=== PATIENT | male | born 1995 | race Asian ===

== ENCOUNTER 2022-02-22 10:20 | Emergency (ER) | payer SELFPAY ==
[~2022-02-22] VITALS: Ht 182.9 cm; Wt 81.6 kg
--- NOTE | 2022-02-22 10:30 | NUR ---
ARRIVAL PT ARRIVED VIA EMS TO ED 4. PT STATES LAST NIGHT HE HAD ABD PAIN AND BLOOD IN HIS VOMIT. HE TAKES ALEVE/IBUPROFEN OFTEN. HASNT HAD A BOWEL MOVMENT IN [address] NOTIFIED.
[2022-02-22 10:37] VITALS: BP 147/89
--- NOTE | 2022-02-22 10:45 | ER.PDOC ---
General Chief Complaint: Abdomen Pain Stated Complaint: ABD PAIN Time seen by MD: 10:30 Source: patient Exam Limitations: no limitations History of Present Illness Initial Comments This 27-year-old white male comes in with complaint of epigastric burning abdominal pain this been off and on for the past couple of months that is slowly getting worse. Patient states that he has been taking a lot of Motrin and Aleve trying to help with the pain but this seems only make things worse. 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 And called an ambulance to come and get him evaluated patient stated that he coughed up a little spot of blood. He absolutely positively denies any vomiting of blood. No blood in the stool. He has no other acute complaints. Severity/Quality: moderate Radiation: no radiation Associated Symptoms: heartburn Exacerbated by: deep breaths Relieved By: antacids, food Allergies: Coded Allergies: No Known Allergies (Unverified , 02/22/22) Vital Signs First Vital Signs Date Time Temp Pulse Resp B/P (MAP) Pulse Ox O2 Delivery O2 Flow Rate FiO2 02/22/22 10:37 98.9 75 18 147/89 (108) 98 Room Air* 0 21 Last Vital Signs Date Time Temp Pulse Resp B/P (MAP) Pulse Ox O2 Delivery O2 Flow Rate FiO2 02/22/22 10:37 98.9 75 18 02/22/22 10:37 98 02/22/22 10:37 147/89 (108) Room Air* 0 21 Past Medical History Medical History: no pertinent history Surgical History: no surgical history Social History Smoking: non-smoker Alcohol Use: occassionally Drug Use: none Constitutional: denies no symptoms reported, denies see HPI, denies chills, denies diaphoresis, denies fever, denies malaise, denies weakness, denies other EENTM: denies no symptoms reported, denies see HPI, denies eye pain, denies blurred vision, denies tearing, denies double vision, denies ear pain, denies ear discharge, denies nose pain, denies nose congestion, denies throat pain, denies throat swelling, denies mouth pain, denies mouth swelling, denies other Respiratory: denies no symptoms reported, denies see HPI, denies cough, denies orthopnea, denies shortness of breath, denies SOB with exertion, denies SOB at rest, denies stridor, denies wheezing, denies other Cardiovascular: denies no symptoms reported, denies see HPI, denies chest pain, denies edema, denies irregular heart rate, denies lightheadedness, denies palpitations, denies syncope, denies other Gastrointestinal: see HPI; denies abdomen distended; abdominal pain; denies blood streaked bowels, denies constipated, denies diarrhea, denies difficulty swallowing, denies nausea, denies poor appetite, denies poor fluid intake, denies rectal bleeding, denies vomiting, denies other Genitourinary: denies no symptoms reported, denies see HPI, denies burning, denies dysuria, denies discharge, denies frequency, denies flank pain, denies hematuria, denies incontinence, denies pain, denies urgency, denies other Musculoskeletal: denies no symptoms reported, denies see HPI, denies back pain, denies gout, denies joint pain, denies joint swelling, denies muscle pain, denies muscle stiffness, denies neck pain, denies other Skin: denies no symptoms reported, denies see HPI, denies change in color, denies change in hair/nails, denies dryness, denies lesions, denies lumps, denies rash, denies other Psychiatric/Neurological: denies no symptoms reported, denies see HPI, denies anxiety, denies depressed, denies emotional problems, denies headache, denies numbness, denies paresthesia, denies pre-existing deficit, denies seizure, denies tingling, denies tremors, denies weakness, denies other Endocrine: denies no symptoms reported, denies see HPI, denies excessive sweating, denies flushing, denies intolerance to cold, denies intolerance to heat, denies increased hunger, denies increased thrist, denies increased urine, denies unexplained weight gain, denies unexplaned weight loss, denies other Hematologic/Lymphatic: denies no symptoms reported, denies see HPI, denies anemia, denies blood clots, denies easy bleeding, denies easy bruising, denies swollen glands, denies other Physical Exam General Appearance: No Apparent Distress, WD/WN HEENT: PERRL/EOMI, Normal ENT Inspection, TMs Normal, Pharynx Normal Neck: Non-Tender, Full Range of Motion, Supple, Normal Inspection Respiratory: chest non-tender, lungs clear, normal breath sounds, no respiratory distress, no accessory muscle use Cardiovascular: Normal Peripheral Pulses, Regular Rate, Rhythm, No Edema, No Gallop, No JVD, No Murmur Gastrointestinal: Normal Bowel Sounds, Non Tender, Soft Back: Normal Inspection, No CVA Tenderness, No Vertebral Tenderness Extremities: Normal Range of Motion, Non-Tender, Normal Inspection, No Pedal Edema, No Calf Tenderness, Normal Capillary Refill, Pelvis Stable Neurologic/Psychiatric: [employer] II-XII NML as Tested, No Motor/Sensory Deficits, Alert, Normal Mood/Affect, Oriented x 3 Skin: Normal Color, Warm/Dry Lymphatic: No Adenopathy Results/Orders Results/Orders Orders - DEMETRICE STEIN MD Cbc With Auto Diff (02/22/22 10:40) Comprehensive Metabolic Panel (02/22/22 10:40) Lipase (02/22/22 10:40) Helicobacter Pylori (02/22/22 10:40) PT (02/22/22 10:40) Partial Thromboplastin Time. (02/22/22 10:40) Urinalysis (02/22/22 10:40) Saline Lock (02/22/22 10:40) Pantoprazole Sodium (Protonix Iv) (02/22/22 10:49) Pantoprazole Sodium (Protonix Iv) (02/22/22 10:52) Lidocaine Hcl (Lidocaine Hcl Viscous) (02/22/22 10:57) Mag Hydrox/Aluminum Hyd/Simeth (Mylanta) (02/22/22 10:58) Lidocaine Hcl (Lidocaine Hcl Viscous) (02/22/22 11:00) Mag Hydrox/Aluminum Hyd/Simeth (Mylanta) (02/22/22 11:00) Vital Signs Date Time Temp Pulse Resp B/P (MAP) Pulse Ox O2 Delivery O2 Flow Rate FiO2 02/22/22 10:37 98.9 75 18 02/22/22 10:37 98.9 75 18 98 02/22/22 10:37 98.9 75 18 147/89 (108) 98 Room Air* 0 21 Administered Medications Medications (Trade) Dose Ordered Sig/Thea Route PRN Reason Start Time Stop Time Status Last Admin Dose Admin Lidocaine HCl (Lidocaine HCl Viscous) 15 ml STAT STAT MM 02/22/22 11:00 02/22/22 11:01 UNV 02/22/22 11:16 15 ML Pantoprazole Sodium (Protonix Iv) 40 mg STAT STAT IV 02/22/22 10:49 02/22/22 10:50 DC 02/22/22 10:54 40 MG Laboratory Tests Test 02/22/22 10:48 02/22/22 11:00 White Blood Count 9.8 10^3/uL (4.5-11.0) Red Blood Count 5.31 10^6/uL (4.50-5.90) Hemoglobin 15.2 g/dL (13.9-16.3) Hematocrit 46.0 % (37.0-53.0) Mean Corpuscular Volume 86.6 fL (78-100) Mean Corpuscular Hemoglobin 28.6 pg (26-34) Mean Corpuscular Hemoglobin Concent 33.0 g/dL (33-36.5) Red Cell Distribution Width 12.8 % (11.5-14.5) Platelet Count 266 10^3/uL (150-400) Mean Platelet Volume 10.1 fL (7.8-11.0) Neutrophils (%) (Auto) 68.8 % (41.0-85.0) Lymphocytes (%) (Auto) 20.6 % (24.0-44.0) L Monocytes (%) (Auto) 8.0 % (5.0-12.0) Neutrophils # (Auto) 6.7 10^3/uL (1.8-7.7) Lymphocytes # (Auto) 2.02 10^3/uL1 (1.0-4.8) Monocytes # (Auto) 0.8 10^3/uL (0.3-0.8) Absolute Immature Granulocyte (auto 0.04 10^3 u/L (0-2) Absolute Eosinophils (auto) 0.2 10^3/uL (0.0-0.2) Immature Granulocytes % 0.40 % (0.00-0.50) Eosinophils % 2.0 % (0.0-5.0) Basophils % 0.2 % (0.0-0.2) Basophils # 0.0 10^3/uL (0.0-0.1) Prothrombin Time 9.5 SEC (9.1-11.5) Prothrombin Time INR (Non-Therap) 0.9 Activated Partial Thromboplast Time 24.1 SEC (22.5-33.1) Sodium Level 139 mmol/L (132-145) Potassium Level 4.1 mmol/L (3.6-5.2) Chloride Level 104.0 mmol/L (96-109) Carbon Dioxide Level 27.2 mmol/L (20.0-32) Anion Gap 11.9 Blood Urea Nitrogen 15 mg/dL (7-18) Creatinine 1.02 mg/dL (0.59-1.40) Estimated GFR () 104.5 (>/=60) Est GFR (CKD-EPI)(Non-Afr [place]) 86.3 (>/=60) BUN/Creatinine Ratio 14.0 Glucose Level 111 mg/dL (70-110) H Calcium Level 9.0 mg/dL (8.4-10.5) Total Bilirubin 0.6 mg/dL (0.2-1.0) Aspartate Amino Transferase (AST) 40 U/L (0-35) H Alanine Aminotransferase (ALT) 92 U/L (12-78) H Alkaline Phosphatase 91 U/L (50-136) Total Protein 7.9 g/dL (6.4-8.2) Albumin 3.6 g/dL (3.4-5.0) Globulin 4.3 Albumin/Globulin Ratio 0.837 Lipase 56 U/L (114-286) L Helicobacter pylori Screen POSITIVE (NEGATIVE) Urine Collection Type UNKNOWN Urine Color YELLOW Urine Appearance CLEAR Urine Bilirubin NEGATIVE (NEGATIVE) Urine Ketones NEGATIVE (NEGATIVE) Urine Specific [place] 1.020 (1.005-1.030) Urine pH 7.5 (4.5-8.0) Urine Protein NEGATIVE (NEGATIVE) Urine Urobilinogen 1.0 E.U./dL (0.2) Urine Nitrate NEGATIVE (NEGATIVE) Urine Leukocyte Esterase NEGATIVE (NEGATIVE) Urine Glucose (Auto)(UA) NEGATIVE (NEGATIVE) Urine Blood NEGATIVE (NEGATIVE) Progress Progress Chemistry UA and CBC are all completely unremarkable. He was H. pylori positive. ER DEPART Departure Time of Disposition: 12:57 Disposition: 01 HOME / SELF CARE / HOMELESS Impression: Primary Impression: H. pylori infection Additional Impression: Gastritis and duodenitis Condition: Improved Comments Clarithromycin 500 mg twice daily for 14 days. Amoxicillin 875 mg twice daily for 14 days. Nexium 40 mg 1 daily for 30 days. Duration or Time Spent with Pa: 15m Problem Qualifiers DEMETRICE STEIN MD Feb 22, 2022 10:45
[2022-02-22] MEDS ORDERED: PROTONIX IV IV STA (10:49)
[2022-02-22] MEDS ORDERED: PROTONIX IV IV ONE (10:52)
[2022-02-22] MEDS ORDERED: LIDOCAINE HCL VISCOUS ONE (10:57)
[2022-02-22 10:58] LABS: BASOPHIL % 0.2 % (0.0-0.2); EOSINOPHIL # 0.2 10^3/uL (0.0-0.2); LYMPHOCYTES # 2.02 10^3/uL1 (1.0-4.8); LYMPHOCYTES % 20.6 % (24.0-44.0); MEAN CORP HGB 28.6 pg (26-34); MONOCYTES # 0.8 10^3/uL (0.3-0.8); NEUTROPHIL # 6.7 10^3/uL (1.8-7.7); NEUTROPHILS % 68.8 % (41.0-85.0); RED CELL DISTRIBUTION WIDTH 12.8 % (11.5-14.5)
[2022-02-22] MEDS ORDERED: MYLANTA ONE (10:58)
[2022-02-22] MEDS ORDERED: LIDOCAINE HCL VISCOUS MM STA (11:00)
[2022-02-22] MEDS ORDERED: MYLANTA PO STA (11:00)
[2022-02-22 11:10] LABS: CARBON DIOXIDE 27.2 mmol/L (20.0-32)
[2022-02-22 11:31] LABS: BILIRUBIN,URINE NEGATIVE (NEGATIVE)
== END 2022-02-22 13:18 | disposition home or self-care (01) ==
LOC: ER 10:20
DX: K29.70 Gastritis, unspecified, without bleeding (principal); K29.80 Duodenitis without bleeding; B96.81 Helicobacter pylori [H. pylori] as the cause of diseases classified elsewhere; F10.20 Alcohol dependence, uncomplicated
CPT/HCPCS: 36415; 80053; 81003; 83690; 85025; 85610; 85730; 86677; 96374; 99284; C9113; J3490